=== PATIENT | female | born 1935 | race Caucasian/White ===

== ENCOUNTER 2018-08-22 09:59 | Day surgery (SDC) | payer OTHER ==
[2018-08-22] MEDS ORDERED: (Novolin R) Insulin Human Regular 100 units/ml vial IVP ONE (10:31)
--- NOTE | 2018-08-22 11:02 | CP.SDSHP ---
Same Day Surgery H & P - History Proposed Procedure: EGD Pre-Op Diagnosis: SEE NOTES - Previous Medical/Surgical History Cardiac: Hypertension Endocrine/Metabolic: Diabetes, Other Pain: 4.Moderate Pain - Allergies Allergies: Allergies No Known Allergies Allergy (Verified 08/22/18 10:29) - Physical Exam General Appearance: N Vital Signs: Vital Signs 08/22/18 10:32 Temperature 98 F Pulse Rate 88 Respiratory 18 Rate Blood Pressure 151/77 H O2 Sat by Pulse 98 Oximetry Mental Status: Alert & Oriented x3 Neuro: WNL Heart: Other Lungs: WNL GI: Other - {Optional Preform as Required} Breast: WNL Abdomen: Other Rectal: Other Integument: WNL : WNL Ortho: WNL ENT: WNL - Impression Pt. Evaluated Today:Candidate for Anesthesia & Procedure: Yes - Date & Time Time: 11:01 Short Stay Discharge - Short Stay Discharge Admitting Diagnosis/Reason for Visit: HEMATEMESIS Disposition: HOME/ ROUTINE
[2018-08-22] MEDS ORDERED: Lidocaine Hydrochloride 5 ML INJ ONE (11:26)
[2018-08-22] MEDS ORDERED: Propofol 10 mg/ml Inj (20 ML) ONE (11:26)
[2018-08-22 11:45] VITALS: O2SAT 100
[2018-08-22] MEDS ORDERED: Etomidate 20 mg/10ml Inj IV ONE (11:45)
[2018-08-22] MEDS ORDERED: Belladonna-Phenobarbital PO ONE (11:50)
[2018-08-22 12:27] VITALS: TEMP 98.4
[2018-08-22 12:44] VITALS: RESP 15
[2018-08-22 12:46] VITALS: BP 159/75; PULSE 70
== END 2018-08-22 13:00 | disposition home or self-care (01) ==
LOC: C.ENDO 09:59
PROVIDERS: ATTEND Specialist
DX: K92.0 Hematemesis (principal); K44.9 Diaphragmatic hernia without obstruction or gangrene; K25.4 Chronic or unspecified gastric ulcer with hemorrhage
CPT/HCPCS: 43239; 82948; 88305; J2704; J7040

== ENCOUNTER 2018-08-28 07:37 | Day surgery (SDC) | payer OTHER ==
[2018-08-28 08:44] VITALS: BMI 18.3
[2018-08-28] MEDS ORDERED: (Novolin R) Insulin Human Regular 100 units/ml vial IVP ONE (09:00)
[2018-08-28 09:30] VITALS: PULSE 88; RESP 18; TEMP 98.2
[2018-08-28] MEDS ORDERED: (Novolin R) Insulin Human Regular 100 units/ml vial ONE (09:43)
--- NOTE | 2018-08-28 10:53 | CP.SDSHP ---
Same Day Surgery H & P - History Proposed Procedure: COLONSCOPY Pre-Op Diagnosis: SEE NOTES - Previous Medical/Surgical History Cardiac: Hypertension Endocrine/Metabolic: Diabetes, Other Neuro: Backaches Misc: Other - Allergies Allergies: Allergies No Known Allergies Allergy (Verified 08/28/18 08:40) - Physical Exam General Appearance: N Vital Signs: Vital Signs 08/28/18 09:13 Temperature 98.2 F Pulse Rate 88 Respiratory 18 Rate Blood Pressure 133/73 O2 Sat by Pulse 97 Oximetry Mental Status: Alert & Oriented x3 Neuro: WNL Heart: Other Lungs: WNL GI: Other - {Optional Preform as Required} Breast: WNL Rectal: Other Integument: WNL : WNL Ortho: Other ENT: WNL - Impression Pt. Evaluated Today:Candidate for Anesthesia & Procedure: Yes - Date & Time Time: 10:53 Short Stay Discharge - Short Stay Discharge Admitting Diagnosis/Reason for Visit: ABNORMAL WEIGHT LOSS,CHANGE IN BOWEL HABIT Disposition: HOME/ ROUTINE
[2018-08-28 10:56] VITALS: O2SAT 100
[2018-08-28] MEDS ORDERED: Propofol 10 mg/ml Inj (20 ML) ONE (10:56)
[2018-08-28] MEDS ORDERED: Lactated Ringer's 500 ML IV SCH (11:00)
[2018-08-28] MEDS ORDERED: Belladonna-Phenobarbital PO ONE (11:45)
[2018-08-28 12:55] VITALS: BP 123/67
== END 2018-08-28 12:30 | disposition home or self-care (01) ==
LOC: C.ENDO 07:37
PROVIDERS: ATTEND Specialist
DX: D12.2 Benign neoplasm of ascending colon (principal); K64.0 First degree hemorrhoids; K58.9 Irritable bowel syndrome, unspecified; I10 Essential (primary) hypertension; E11.9 Type 2 diabetes mellitus without complications; E78.5 Hyperlipidemia, unspecified; Z98.890 Other specified postprocedural states; Z79.84 Long term (current) use of oral hypoglycemic drugs; Z79.899 Other long term (current) drug therapy
CPT/HCPCS: 45380; 82948; 88305; J2704; J7042; J7120